=== PATIENT | female | born 1995 | race Two or more races ===

== ENCOUNTER 2016-06-29 12:46 | Emergency (ER) | payer SELFPAY ==
[2016-06-29 12:55] VITALS: BP 126/63; PULSE 101; RESP 16; TEMP 98.6; O2SAT 96
[2016-06-29 13:03] LABS: COLOR YELLOW; LEUKOCYTE ESTERASE,URINE NEGATIVE (NEGATIVE); NITRITE,URINE NEGATIVE (NEGATIVE)
[2016-06-29 13:25] LABS: RBC,URINE 25-50 /hpf (0-3)
[2016-06-29 13:26] LABS: AMORPHOUS 2+ /hpf (NONE-1+)
[2016-06-29 13:30] LABS: BACTERIA 1+ /hpf (NONE SEEN); MUCUS 1+ /lpf (NONE-1+)
[2016-06-29 13:33] LABS: WBC,URINE 15-25 /hpf (0-3)
--- NOTE | 2016-06-29 14:18 | UCPHY ---
H & P Time Seen by Provider: 06/29/16 14:10 Patient Type: New HPI/ROS: This patient presents with a chief complaint of dysuria and frequency for the past 3 days. She has no history of a UTI in the past. She also has had urgency and occasional hematuria but denies fever, flank pain, nausea or vomiting. She denies any vaginal discharge although there has been some itching. Smoking Status: Never smoked Physical Exam: This is a well-developed well-nourished female who is in no acute distress. She is alert lucid and f has a normal mental status. Back: There is no CVA tenderness Abdomen: Soft and nontender Constitutional: Initial Vital Signs Temperature (C) 37 C 06/29/16 12:51 Heart Rate 101 H 06/29/16 12:51 Respiratory Rate 16 06/29/16 12:51 Blood Pressure 126/63 H 06/29/16 12:51 O2 Sat (%) 96 06/29/16 12:51 O2 Delivery Mode Room Air Allergies/Adverse Reactions: milk Allergy (Intermediate, Verified 06/29/16 12:55) Diarrhea Home Medications: Medication Instructions Recorded Ibuprofen 06/29/16 Nitrofurantoin Macrobid [Macrobid] 100 mg PO BID #14 cap 06/29/16 Phenazopyridine HCl [Pyridium] 200 mg PO TID PRN #9 tab 06/29/16 Medical Decision Making Differential Diagnosis: This patient seems to have an uncomplicated acute cystitis consequently cultures were not obtained. There is no evidence of vaginitis. - Data Points Laboratory Results: 06/29/16 12:58 Urine Color YELLOW Urine Appearance HAZY Urine pH 8.0 H (5.0-7.5) Ur Specific [place] 1.020 (1.002-1.030) Urine Protein 2+ H (NEGATIVE) Urine Ketones NEGATIVE (NEGATIVE) Urine Blood 3+ H (NEGATIVE) Urine Nitrate NEGATIVE (NEGATIVE) Urine Bilirubin NEGATIVE (NEGATIVE) Urine Urobilinogen 0.2 EU (0.2-1.0) Ur Leukocyte Esterase NEGATIVE (NEGATIVE) Urine RBC 25-50 H /hpf (0-3) Urine WBC 15-25 H /hpf (0-3) Ur Epithelial Cells 2+ H /lpf (NONE-1+) Amorphous Sediment 2+ H /hpf (NONE-1+) Urine Bacteria 1+ H /hpf (NONE SEEN) Urine Mucus 1+ /lpf (NONE-1+) Urine Glucose NEGATIVE (NEGATIVE) Departure - Departure Disposition: Home, Routine, Self-Care Clinical Impression: Urinary tract infection Qualifiers: Urinary tract infection type: acute cystitis Hematuria presence: without hematuria Qualifier Code: (N30.00) Acute cystitis without hematuria Condition: Good Instructions: Urinary Tract Infection in Women (ED) Additional Instructions: If your symptoms have not completely resolved in 2 days you should be re- evaluated. Cause for concern would be fever, kidney pain or vomiting. Prescriptions: Nitrofurantoin Macrobid [Macrobid] 100 mg PO BID #14 cap Phenazopyridine HCl [Pyridium] 200 mg PO TID PRN #9 tab PRN Reason: URINARY TRACT INFECTION SYMPTO - PQRS PQRS Measurement: Not applicable
== END 2016-06-29 14:25 | disposition home or self-care (01) ==
LOC: CED 12:46
DX: N30.00 Acute cystitis without hematuria (principal)
CPT/HCPCS: 81003-PO; 81015-PO; 99202-PO; G0463-PO

== ENCOUNTER → 2016-08-05 | Emergency (ER) | payer MEDICAID, OTHER ==
[2016-08-05 17:18] VITALS: BP 120/66; PULSE 74; RESP 18; TEMP 98; O2SAT 96
--- NOTE | 2016-08-05 17:25 | UCPHY ---
H & P Patient Type: New Chief Complaint Nursing Narrative: c/o ST/Spots on darleen since Sat. HPI/ROS: HPI CHIEF COMPLAINT: Sore throat HISTORY OF PRESENT ILLNESS: this patient very pleasant 20-year-old female denies any significant medical or surgical history presents to urgent care sore throat x2 days. No fever. Does have postnasal drip and rhinorrhea. Denies fever, denies change in voice, denies nausea vomiting. Past Medical History: No medical history Past Surgical History: no surgical history Social History: denies daily use of drugs alcohol tobacco products Family History: noncontributory ROS REVIEW OF SYSTEMS: A comprehensive 10 point review of systems is otherwise negative aside from elements mentioned in the history of present illness. Exam Constitutional triage nursing summary reviewed, vital signs reviewed, awake/ alert. Eyes normal conjunctivae and sclera, EOMI, PERRLA. HENT posterior pharynx mild erythema bilaterally, uvula midline, soft palate normal, no petechiae, no exudate, no asymmetrical swelling, no hot potato voice , no trismus no Eber's,normal inspection, atraumatic, moist mucus membranes, no epistaxis, neck supple/ no meningismus, no raccoon eyes. Respiratory clear to auscultation bilaterally, normal breath sounds, no respiratory distress, no wheezing. Cardiovascular rate normal, regular rhythm, no murmur, no edema, distal pulses normal. Gastrointestinal soft, non-tender, no rebound, no guarding, normal bowel sounds, no distension, no pulsatile mass. Genitourinary no CVA tenderness. Musculoskeletal no midline vertebral tenderness, full range of motion, no calf swelling, no tenderness of extremities, no meningismus, good pulses, neurovascularly intact. Skin pink, warm, & dry, no rash, skin atraumatic. Neurologic awake, alert and oriented x 3, AAOx3, moves all 4 extremities equally, motor intact, sensory intact, CN II-XII intact, normal cerebellar, normal vision, normal speech. Psychiatric normal mood/affect. Heme/Lymph/Immune no lymphadenopathy. Differential Diagnosis: includes but is not limited to in a particular order upper respiratory tract infection, viral syndrome, viral pharyngitis, strep pharyngitis, uvulitis Medical Decision Making: this patient appears well nontoxic here no acute distress, no trismus no hot potato voice, will perform a rapid strep. Most likely viral pharyngitis. Prescription given for azithromycin, Decadron, ibuprofen. She understands return to the ER or urgent care if she has worsening symptoms questions or concerns. Source: Patient - Personal History LMP (Females 10-55): 22-28 Days Ago Current Tetanus Diphtheria and Acellular Pertussis (TDAP): Yes Tetanus Vaccine Date: within 10 years - Medical/Surgical History Hx Asthma: No Hx Chronic Respiratory Disease: No Hx Diabetes: No Hx Cardiac Disease: No Hx Renal Disease: No Hx Cirrhosis: No Hx Alcoholism: No Hx HIV/AIDS: No Hx Splenectomy or Spleen Trauma: No Other PMH: Denies - Family History Significant Family History: No pertinent family hx - Social History Smoking Status: Never smoked Constitutional: Initial Vital Signs Temperature (C) 36.6 C 08/05/16 17:16 Heart Rate 74 08/05/16 17:16 Respiratory Rate 18 08/05/16 17:16 Blood Pressure 120/66 08/05/16 17:16 O2 Sat (%) 96 08/05/16 17:16 O2 Delivery Mode Room Air Allergies/Adverse Reactions: milk Allergy (Intermediate, Verified 06/29/16 12:55) Diarrhea Home Medications: Medication Instructions Recorded AZITHROMYCIN [Z-PACK] 250 mg PO DAILY #6 tab 08/05/16 Dexamethasone [Decadron 4 MG (*)] 4 mg PO DAILY #4 tab 08/05/16 Guaifenesin [Guaifenesin ER] 600 mg PO BID #14 tab.er.12h 08/05/16 Ibuprofen [Motrin (*)] 800 mg PO Q6-8PRN #7 tab 08/05/16 Departure - Departure Disposition: Home, Routine, Self-Care Clinical Impression: Pharyngitis Qualifiers: Pharyngitis/tonsillitis etiology: unspecified etiology Qualified Code(s): J02.9 - Acute pharyngitis, unspecified Condition: Good Instructions: Pharyngitis (ED) Additional Instructions: 1. Please drink lots of fluids. 2. Take her medications with food not on an empty stomach 3. return to the urgent care or emergency room if develops worsening symptoms questions or concerns. Prescriptions: AZITHROMYCIN [Z-PACK] 250 mg PO DAILY #6 tab Dexamethasone [Decadron 4 MG (*)] 4 mg PO DAILY #4 tab Guaifenesin [Guaifenesin ER] 600 mg PO BID #14 tab.er.12h Ibuprofen [Motrin (*)] 800 mg PO Q6-8PRN #7 tab - PQRS PQRS Measurement: n/a
== END | disposition home or self-care (01) ==
LOC: CED 17:03
DX: J02.9 Acute pharyngitis, unspecified (principal)
CPT/HCPCS: 87880-PO; 99204-PO; G0463-PO

== ENCOUNTER 2016-10-26 14:03 | Emergency (ER) | payer MEDICAID ==
[2016-10-26 14:10] VITALS: BP 107/68; PULSE 76; RESP 16; TEMP 98.2; O2SAT 98
== END 2016-10-26 14:35 | disposition left against medical advice (07) ==
LOC: CED 14:03
DX: Z53.21 Procedure and treatment not carried out due to patient leaving prior to being seen by health care provider (principal)

== ENCOUNTER 2017-01-09 15:29 | Emergency (ER) | payer MEDICAID ==
--- NOTE | 2017-01-09 16:23 | EDPHY ---
H & P Time Seen by Provider: 01/09/17 16:04 HPI/ROS: This patient complains of dysuria that is intermittent this week. She notes no clear exacerbating or alleviating factors. She notes no other associated symptoms. She is worried about STDs though she denies any obvious risk factors for STD. She is monogamous with her partner in the use condoms for control. ROS: Constitutional: No fevers. No other symptoms HEENT: No complaints Pulmonary: No complaints and cardiovascular: No complaints GI: No pelvic pain or abdominal pain. : No hematuria. No vaginal discharge. Last menstrual. Normal timing. No genital lesions. No skin rash to the area. No flank pain Neuro: No symptoms Integumentary: No symptoms 7 point ROS is otherwise negative. Social History: No unprotected sex or other risk factors for STDs Smoking Status: Never smoked Physical Exam: Physical Exam Vital signs are normal. General: No acute distress Eyes: Pupils equal and react to light. Extraocular motions are intact. Lungs: No respiratory distress. Cardiac: Regular rate and rhythm with no murmur gallop or rub Abdomen: Soft, nontender, minimal suprapubic tenderness with no guarding or rebound. Back: No CVA tenderness Skin: No rash or pallor. Neuro: Alert and oriented x3 with no sensorimotor deficits. Initial differential diagnosis: UTI, urethritis, STD, Constitutional: Initial Vital Signs Temperature (C) 37.3 C 01/09/17 15:41 Heart Rate 85 01/09/17 15:41 Respiratory Rate 16 01/09/17 15:41 Blood Pressure 116/74 01/09/17 15:41 O2 Sat (%) 98 01/09/17 15:41 O2 Delivery Mode Room Air Allergies/Adverse Reactions: milk Allergy (Intermediate, Verified 01/09/17 15:49) Diarrhea Home Medications: Medication Instructions Recorded NK [No Known Home Meds] 10/26/16 MDM/Departure - MDM Diagnostics: Urine is negative Urinalysis is normal GC and chlamydia urine PCR tests are pending ED Course/Re-evaluation: A review of her labs reveals normal urinalysis, negative test. I counseled the patient regarding her dysuria-no evidence of UTI today. STD test pending. She will drink plenty fluids, follow up with primary care physician for any ongoing symptoms return for any worsening despite the treatment plan. - Depart Disposition: Home, Routine, Self-Care Clinical Impression: Dysuria Condition: Good Instructions: Dysuria (ED) Additional Instructions: Diagnosis: Dysuria Your urinalysis is normal today. Your not . The other tests are pending will take 2 days typically to come back. We will call you if they are abnormal. Plan: Drink plenty fluids Azo/peridium if needed for burning with urination Return for any significant worsening of her symptoms despite the treatment plan Referrals: RONALD PARSONS,. [Primary Care Provider] - As per Instructions
[2017-01-09 16:31] LABS: COLOR YELLOW; LEUKOCYTE ESTERASE,URINE NEGATIVE (NEGATIVE); NITRITE,URINE NEGATIVE (NEGATIVE)
[2017-01-09 16:48] VITALS: TEMP 97.5
[2017-01-09 17:02] VITALS: BP 124/56; PULSE 73; RESP 16; O2SAT 96
[2017-01-10 11:26] LABS: CHLAMYDIA AMPLIFICATION GENPRB NEGATIVE (NEGATIVE)
== END 2017-01-09 16:55 | disposition home or self-care (01) ==
LOC: CED 15:29
DX: R30.0 Dysuria (principal)
CPT/HCPCS: 81003-PO; 81025-PO